=== PATIENT | female | born 1975 | race Caucasian/White ===

== ENCOUNTER 2018-01-14 10:19 | Outpatient (CLI) | payer OTHER | END 2018-01-14 10:30 | disposition home or self-care (01) | LOC: TOM 10:19 | DX: K59.04 Chronic idiopathic constipation (principal); N80.5 Endometriosis of intestine ==

== ENCOUNTER 2018-01-18 10:13 | Day surgery (SDC) | payer OTHER | END 2018-01-18 14:45 | disposition home or self-care (01) | LOC: AMB-ENDOS 10:13 | DX: K52.89 Other specified noninfective gastroenteritis and colitis (principal); K64.8 Other hemorrhoids ==

== ENCOUNTER 2018-03-15 14:45 | Inpatient (IN) | payer OTHER ==
[~2018-03-15] VITALS: Ht 152.4 cm; Wt 47.6 kg
[2018-03-20] MEDS ORDERED: HYOSCYAMINE0.125 M1 SL (10:47)
[2018-03-20] MEDS ORDERED: Intestinex CAP PO (10:48)
[2018-03-20] MEDS ORDERED: PANTOPRAZOLE SO40 MG PO (10:48)
[2018-03-20] MEDS ORDERED: OXYC1TAB9 PO (10:48)
== END 2018-03-20 11:20 | DRG 330 ==
LOC: OB/GYN 03-17 06:00 → O/R 03-17 06:00 → RECOVERY 03-17 14:45 → OB/GYN 03-17 17:12
PROVIDERS: Obstetrics & Gynecology Gynecology; Surgery
PROC: 0DTU4ZZ Resection of Omentum, Percutaneous Endoscopic Approach (ICD-10-PCS; 2018-03-17)
PROC: 0UT94ZZ Resection of Uterus, Percutaneous Endoscopic Approach (ICD-10-PCS; 2018-03-17)
PROC: 0UT74ZZ Resection of Bilateral Fallopian Tubes, Percutaneous Endoscopic Approach (ICD-10-PCS; 2018-03-17)
PROC: 0UT24ZZ Resection of Bilateral Ovaries, Percutaneous Endoscopic Approach (ICD-10-PCS; 2018-03-17)
PROC: 0DTN4ZZ Resection of Sigmoid Colon, Percutaneous Endoscopic Approach (ICD-10-PCS; principal; 2018-03-17 22:45)
PROC: 0DJD8ZZ Inspection of Lower Intestinal Tract, Via Natural or Artificial Opening Endoscopic (ICD-10-PCS; 2018-03-17 22:45)
PROC: 30233N1 Transfusion of Nonautologous Red Blood Cells into Peripheral Vein, Percutaneous Approach (ICD-10-PCS; 2018-03-18)
DX: N80.5 Endometriosis of intestine (principal); D62 Acute posthemorrhagic anemia; N80.2 Endometriosis of fallopian tube; N80.1 Endometriosis of ovary; N80.3 Endometriosis of pelvic peritoneum; K62.4 Stenosis of anus and rectum; N80.0 Endometriosis of uterus; K59.02 Outlet dysfunction constipation